=== PATIENT | male | born 1945 | race Caucasian/White ===

== ENCOUNTER 2025-03-16 09:15 | Emergency (ER) | payer OTHER ==
[2025-03-16 09:52] LABS: BASOPHILS ABSOLUTE AUTO 0.03 10^3/uL (0.00-0.50); BASOPHILS PERCENT AUTO 0.3 % (0-1); EOSINOPHILS ABSOLUTE AUTO 0.16 10^3/uL (0.00-1.50); EOSINOPHILS PERCENT AUTO 1.7 % (0-6); HEMATOCRIT 46.4 % (42.0-52.0); HEMOGLOBIN 14.9 g/dL (14.0-18.0); IMMATURE GRAN ABSOLUTE AUTO 0.04 10^3/uL (0.00-0.49); IMMATURE GRAN PERCENT AUTO 0.4 % (0.0-4.9); LYMPHOCYTES ABSOLUTE AUTO 1.97 10^3/uL (0.60-5.00); LYMPHOCYTES PERCENT AUTO 21.4 % (24-44); MEAN CORPUSCULAR HGB CONC 32.1 g/dL (32.0-36.0); MEAN CORPUSCULAR VOLUME 93.4 fL (83.0-97.0); MONOCYTES ABSOLUTE AUTO 0.71 10^3/uL (0.00-1.50); MONOCYTES PERCENT AUTO 7.7 % (0-10); NEUTROPHILS PERCENT AUTO 68.5 % (41-71); PLATELET COUNT,PLT 243 10^3/uL (150-400); RED BLOOD CELL COUNT 4.97 x10^6/uL (4.50-6.00); WHITE BLOOD CELL COUNT,WBC 9.2 10^3/uL (4.0-11.0)
[2025-03-16 09:57] LABS: APPEARANCE,URINE CLEAR (CLEAR); BILIRUBIN,URINE NEGATIVE (NEGATIVE); COLOR,URINE YELLOW (YELLOW); GLUCOSE,URINE NEGATIVE (NEGATIVE); KETONES,URINE NEGATIVE (NEGATIVE); LEUKOCYTE ESTERASE,URINE NEGATIVE (NEGATIVE); NITRITE,URINE NEGATIVE (NEGATIVE); OCCULT BLOOD,URINE NEGATIVE (NEGATIVE); PH,URINE 6.5 (4.5-8.0); PROTEIN,URINE NEGATIVE (NEGATIVE); UROBILINOGEN,URINE 0.2 EU/dL (0.2-1.0)
[2025-03-16 10:10] LABS: ALANINE AMINOTRANSFERASE,ALT 23 U/L (12-78); ALBUMIN 4.1 g/dL (3.4-5.0); ALKALINE PHOSPHATASE 104 U/L (46-116); ASPARTATE AMNIOTRANSFERASE,AST 19 U/L (15-37); BILIRUBIN TOTAL 0.5 mg/dL (0.0-1.0); BLOOD UREA NITROGEN,BUN 17 mg/dL (7-18); CALCIUM 9.7 mg/dL (8.4-10.1); CARBON DIOXIDE,CO2 30 mmol/L (21-32); CHLORIDE,CL 101 mEq/L (98-106); CREATININE 1.1 mg/dL (0.7-1.3); GLUCOSE RANDOM 114 mg/dL (75-99); PROTEIN TOTAL,TP 7.7 g/dL (6.4-8.2); SODIUM,NA 141 mEq/L (136-145)
[2025-03-16 10:15] LABS: ESTIMATED GFR 68 mL/min (>=60)
[2025-03-16 10:16] VITALS: PULSE 84
[2025-03-16 11:26] VITALS: BP 152/82
== END 2025-03-16 11:20 | disposition home or self-care (01) ==
LOC: CC.ED 09:15
DX: R20.0 Anesthesia of skin (principal); I10 Essential (primary) hypertension
CPT/HCPCS: 36415; 70450; 80053; 81003; 83735; 84484; 85025; 85730; 93005; 93010; 99284